=== PATIENT | female | born 1960 | race Caucasian/White ===

== ENCOUNTER → 2016-12-29 | Outpatient (CLI) | payer BC ==
[~2016-12-29] MED LIST: MULT-506 PO
--- NOTE | 2016-12-30 14:53 | MAMMOGRAPHY REPORT ---
BILATERAL DIGITAL SCREENING MAMMOGRAM TOMOSYNTHESIS WITH CAD: 12/29/2016 CLINICAL HISTORY: Routine screening. Patient has no complaints. TECHNIQUE: Breast tomosynthesis in addition to standard 2D mammography was performed. Current study was also evaluated with a Computer Aided Detection (CAD) system. COMPARISON: Comparison is made to exams dated: 10/15/2015 mammogram, 02/19/2014 mammogram, 10/10/2014 ma mmogram, 08/08/2013 mammogram, 07/01/2012 mammogram, and 06/24/2011 mammogram - [facility]. BREAST COMPOSITION: The tissue of both breasts is heterogeneously dense, which may obscure small ma sses. FINDINGS: There are stable grouped and clustered microcalcifications in the left breast. No new bijal picious mass, architectural distortion or cluster of microcalcifications is seen. IMPRESSION: ACR BI-RADS CATEGORY 2: BENIGN There is no mammographic evidence of malignancy. A 1 year screening mammogram is recommended. The p atient will receive written notification of the results. Approximately 10% of breast cancers are not detected with mammography. A negative mammographic repor t should not delay biopsy if a clinically suggestive mass is present. Amy Leyva M.D. ay/:12/29/2016 18:06:10 Weave Defect Charting Clerk: Lor Villegas, [facility] letter sent: Normal 1/2 BI-RADS Code: ACR BI-RADS Category 2: Benign
== END | disposition home or self-care (01) ==
LOC: C.MAMM 10:54
PROVIDERS: ATTEND Obstetrics & Gynecology
DX: Z12.31 Encounter for screening mammogram for malignant neoplasm of breast (principal)

== ENCOUNTER → 2017-09-17 | Outpatient (CLI) | payer BC ==
[2017-09-17 10:35] LABS: BLOOD UREA NITROGEN 12 mg/dl (7-18); CARBON DIOXIDE 28 mmol/L (21-32); CREATININE 0.67 mg/dl (0.60-1.20); GLUCOSE 95 mg/dl (70-99); POTASSIUM 4.1 mmol/L (3.5-5.1); SODIUM 137 mmol/L (136-145)
[2017-09-17 10:36] LABS: HEMOGLOBIN A1C 5.8 % (4.5-5.6)
[2017-09-17 10:37] LABS: CHOLESTEROL 250 mg/dl (0-200); LDL CHOLESTEROL CALCULATED 159 mg/dl
== END | disposition home or self-care (01) ==
LOC: C.LAB1850 08:57
PROVIDERS: ATTEND Internal Medicine
DX: R73.09 Other abnormal glucose (principal); Z13.220 Encounter for screening for lipoid disorders

== ENCOUNTER → 2018-01-03 | Outpatient (CLI) | payer BC ==
--- NOTE | 2018-01-03 15:09 | MAMMOGRAPHY REPORT ---
BILATERAL DIGITAL SCREENING MAMMOGRAM TOMOSYNTHESIS WITH CAD: 01/03/2018 CLINICAL HISTORY: Routine screening. Patient has no complaints. There are stable groupings of benign-appearing microcalcifications in the upper outer quadrant of the left breast, that appears similar TECHNIQUE: Breast tomosynthesis in addition to standard 2D mammography was performed. Current study was also evaluated with a Computer Aided Detection (CAD) system. COMPARISON: Comparison is made to exams dated: 12/29/2016 mammogram, 10/15/2015 mammogram, 10/10/2014 ma mmogram, 02/19/2014 mammogram, 08/14/2013 mammogram, and 08/08/2013 mammogram - [facility]. BREAST COMPOSITION: The tissue of both breasts is heterogeneously dense, which may obscure small mas ses. FINDINGS: There are stable groupings of benign-appearing microcalcifications in the upper outer quadr ant of the left breast, that appears similar on all available prior mammograms dating back to at leas t 06/10/2010, therefore likely benign. No new suspicious mass, architectural distortion or cluster o f microcalcifications is seen. IMPRESSION: ACR BI-RADS CATEGORY 1: NEGATIVE There is no mammographic evidence of malignancy. A 1 year screening mammogram is recommended. The pa tient will receive written notification of the results. Approximately 10% of breast cancers are not detected with mammography. A negative mammographic report should not delay biopsy if a clinically suggestive mass is present. Amy Leyva M.D. ay/:01/03/2018 13:43:20 Balance Assembler: Chelsea BYRD(Sarita)(Cosmo)(BRYSON), letter sent: Normal 1/2 BI-RADS Code: ACR BI-RADS Category 1: Negative
== END | disposition home or self-care (01) ==
LOC: C.MAMM 09:16
PROVIDERS: ATTEND Obstetrics & Gynecology
DX: Z12.31 Encounter for screening mammogram for malignant neoplasm of breast (principal)

== ENCOUNTER → 2018-04-05 | Outpatient (CLI) | payer BC ==
--- NOTE | 2018-04-05 15:41 | DIAGNOSTIC IMAGING REPORT ---
CHEST 2 VIEWS ROUTINE HISTORY: 57 years-old Female R05 acute cough COMPARISON: None available TECHNIQUE: PA and lateral views of the chest FINDINGS: Cardiomediastinal and hilar silhouettes are within normal limits. 7 mm nodular opacity projects of the lateral right lung base. No pneumothorax, pleural effusion, focal airspace consolidation or overt pulmonary edema. Bones of the chest appear grossly intact. IMPRESSION: 1. No acute processes of the chest. 2. 7 mm nodular opacity about the lateral right lung base suggest probable nipple shadow. This could be confirmed with follow-up radiograph with nipple markers. The above report was generated using voice recognition software. It may contain grammatical, syntax or spelling errors. Electronically signed by: Jacob Edmonds M.D. 04/05/2018 3:39 PM Dictated Date/Time: 04/05/2018 3:37 PM
[2018-04-05 16:16] LABS: HEMATOCRIT 37.1 % (37-47); HEMOGLOBIN 12.8 g/dL (12.0-16.0); MEAN CELL VOLUME 91.4 fL (80-100); MEAN CORPUSCULAR HEMOGLOBIN 31.5 pg (25-34); MEAN CORPUSCULAR HGB CONC 34.5 g/dl (32-36); MEAN PLATELET VOLUME 9.5 fL (7.4-10.4); PLATELET COUNT 200 K/uL (130-400); RED CELL DISTRIBUTION WIDTH CV 13.3 % (11.5-14.5); RED CELL DISTRIBUTION WIDTH SD 44.4 fL (36.4-46.3); WHITE BLOOD COUNT 5.46 K/uL (4.8-10.8)
[2018-04-05 16:54] LABS: ALBUMIN 3.9 gm/dl (3.4-5.0); ALKALINE PHOSPHATASE 75 U/L (45-117); ALT/SGPT 29 U/L (12-78); AST/SGOT 20 U/L (15-37); BLOOD UREA NITROGEN 15 mg/dl (7-18); CALCIUM 9.1 mg/dl (8.5-10.1); CARBON DIOXIDE 25 mmol/L (21-32); CREATININE 0.61 mg/dl (0.60-1.20); GLUCOSE 91 mg/dl (70-99); POTASSIUM 3.7 mmol/L (3.5-5.1); SODIUM 138 mmol/L (136-145); TOTAL PROTEIN 7.6 gm/dl (6.4-8.2)
== END | disposition home or self-care (01) ==
LOC: C.RAD1850 15:06
PROVIDERS: ATTEND Physician Assistant
DX: R05 Cough (principal); R91.8 Other nonspecific abnormal finding of lung field

== ENCOUNTER → 2018-04-06 | Outpatient (CLI) | payer BC ==
--- NOTE | 2018-04-06 16:43 | DIAGNOSTIC IMAGING REPORT ---
CHEST 2 VIEWS ROUTINE CLINICAL HISTORY: 57 years-old Female presenting with R05 [id number] Abnormal chest x-ray Concerning 7mm nodule, but ma. TECHNIQUE: PA and lateral views of the chest were obtained. COMPARISON: 04/05/2018. FINDINGS: Cardiomediastinal silhouette normal. Prominent nipple shadows noted bilaterally. Suggestion of a 9 mm left midlung nodule. No other focal opacity. No pleural effusion or pneumothorax. Degenerative changes of the thoracic spine. Upper abdomen normal. IMPRESSION: 1. Findings concerning for 9 mm left midlung nodule. Further evaluation with chest CT to be considered. 2. The previously reported nodular opacity at the right lung base represents a prominent nipple shadow. Electronically signed by: Sukhjinder Ordaz M.D. 04/06/2018 4:42 PM Dictated Date/Time: 04/06/2018 4:39 PM
== END | disposition home or self-care (01) ==
LOC: C.RAD1850 16:28
PROVIDERS: ATTEND Physician Assistant
DX: R05 Cough (principal); R91.8 Other nonspecific abnormal finding of lung field

== ENCOUNTER → 2018-04-07 | Outpatient (CLI) | payer BC ==
--- NOTE | 2018-04-07 15:01 | DIAGNOSTIC IMAGING REPORT ---
CT OF THE CHEST WITHOUT IV CONTRAST CLINICAL HISTORY: Abnormal chest radiographs. Chest congestion. COMPARISON STUDY: Chest radiographs April 05, 2018 and April 06, 2018. CT DOSE: 231.12 mGycm TECHNIQUE: Axial images of the chest were obtained without IV contrast. Images were reviewed in the axial, sagittal, and coronal planes. IV contrast was not administered for this examination. A dose lowering technique was utilized adhering to the principles of ALARA. FINDINGS: Size of the heart is normal. Caliber of the ascending aorta is at the upper limits of normal. There is no pericardial effusion. No enlarged axillary, mediastinal or hilar lymph nodes are present. No pneumothorax or pleural effusion is noted. There is no consolidation to suggest pneumonia. The apparent 9 mm left midlung nodule shown on exam of April 06, 2018 is not visualized. This was artifactual. Note is made of a 7 mm subpleural circumscribed right lower lobe nodule on image 246 of [id number] which may correspond to the finding on exam of April 05, 2018. This is probably benign. There are multiple additional tiny calcified and noncalcified pulmonary nodules. These favor granulomas. Bony thorax and upper abdomen are unremarkable on this unenhanced study. Central airways are patent. A few tiny tree-in-bud nodules within the lungs are noted. IMPRESSION: 1. 7 mm circumscribed subpleural right lower lobe nodule which may correspond to the finding on exam of April 05, 2018. This is likely benign but can be followed according to the attached recommendations. 2. The possible 9 mm left lung nodule shown on exam of April 06, 2018 is not visualized and was likely artifactual. 3. A few tiny tree-in-bud nodules within the lungs which favors minimal bronchiolitis. No consolidation to suggest pneumonia. SOLID NODULES Solitary nodule size: <6 mm * low risk patients: no follow-up needed * high risk patients: optional CT at 12 months Solitary nodule size: 6-8 mm * low risk patients: follow-up at 6-12 months, then consider further follow-up at 18-24 months * high risk patients: initial follow-up CT at 6-12 months and then at 18-24 months if no change Solitary nodule size: >8 mm * either low or high risk patients - consider follow-up CT at 3 months, and/or CT-PET, and/or biopsy Multiple nodules size: <6 mm * low risk patients: no routine follow-up * high risk patients: optional CT at 12 months Multiple nodules size: 6-8 mm * low risk patients: follow-up at 3-6 months, then consider further follow-up at 18-24 months * high risk patients: follow-up at 3-6 months, then at 18-24 months if no change Multiple nodules size: >8 mm * low risk patients: follow-up at 3-6 months, then consider further follow-up at 18-24 months * high risk patients: follow-up at 3-6 months, then at 18-24 months if no change Electronically signed by: Choco Marvin M.D. 04/07/2018 2:59 PM Dictated Date/Time: 04/07/2018 2:43 PM
== END | disposition home or self-care (01) ==
LOC: C.CTS 14:30
PROVIDERS: ATTEND Physician Assistant
DX: R93.8 Abnormal findings on diagnostic imaging of other specified body structures (principal); R91.8 Other nonspecific abnormal finding of lung field